=== PATIENT | male | born 1980 | race Caucasian/White ===

== ENCOUNTER 2019-02-16 01:03 | Observation (INO) | payer MEDICARE, OTHER ==
--- NOTE | 2019-02-16 01:40 | ED ---
Chest Pain HPI - General Chief Complaint: Chest Pain Stated Complaint: Chest Pain Time Seen by Provider: 02/16/19 01:39 Source: patient, EMS Mode of arrival: EMS Limitations: no limitations - History of Present Illness MD Complaint: chest pain Onset/Timin -: hour(s) Onset: during rest Pain Location: left chest Pain Radiation: back Severity: severe Quality: sharp Consistency: intermittent Improves With: nothing Worsens With: nothing Anginal Symptoms: dyspnea Treatments Prior to Arrival: none - Related Data Allergies Allergy/AdvReac Type Severity Reaction Status Date / Time No Known Allergies Allergy Verified 02/16/19 01:23 Review of Systems ROS Statement: Those systems with pertinent positive or pertinent negative responses have been documented in the HPI. ROS Other: All systems not noted in ROS Statement are negative. Constitutional: Denies: fever, chills Respiratory: Reports: dyspnea. Denies: cough Cardiovascular: Reports: chest pain. 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 History of Any Multi-Drug Resistant Organisms: None Reported Past Surgical History: Orthopedic Surgery Smoking Status: Current every day smoker Past Alcohol Use History: None Reported Past Drug Use History: Marijuana General Exam Limitations: no limitations General appearance: alert, in no apparent distress Head exam: Present: atraumatic, normocephalic Eye exam: Present: normal appearance. Absent: scleral icterus, conjunctival injection ENT exam: Present: normal oropharynx Neck exam: Present: normal inspection Respiratory exam: Present: normal lung sounds bilaterally. Absent: respiratory distress, wheezes, rales, rhonchi, stridor, chest wall tenderness, accessory muscle use, decreased breath sounds Cardiovascular Exam: Present: regular rate, normal rhythm, normal heart sounds. Absent: systolic murmur, diastolic murmur, rubs, gallop GI/Abdominal exam: Present: soft. Absent: distended, tenderness, guarding, rebound, rigid, mass Extremities exam: Present: normal inspection, normal capillary refill. Absent: pedal edema, calf tenderness Back exam: Present: normal inspection. Absent: CVA tenderness (R), CVA tenderness (L) Neurological exam: Present: alert Skin exam: Present: warm, dry, intact, normal color. Absent: rash Course Vital Signs 02/16/19 01:07 Temperature 98.3 F Pulse Rate 112 H Respiratory 18 Rate Blood Pressure 133/76 O2 Sat by Pulse 98 Oximetry Disposition Clinical Impression: Chest pain Disposition: ADMITTED IP TO THIS HOSP Condition: Fair Instructions (If sedation given, give patient instructions): Chest Pain (ED) Is patient prescribed a controlled substance at d/c from ED?: No Referrals: Alvino Linton MD [Primary Care Provider] - 1-2 days
[2019-02-16 01:50] LABS: Basophils # (A) 0.1 k/uL (0-0.2); Basophils % (A) 1 %; Eosinophils # (A) 0.5 k/uL (0-0.7); Eosinophils % (A) 4 %; HCT 42.7 % (39.0-53.0); HGB 14.8 gm/dL (13.0-17.5); Lymphocytes # (A) 3.4 k/uL (1.0-4.8); Lymphocytes % (A) 32 %; MCH 31.4 pg (25.0-35.0); MCHC 34.6 g/dL (31.0-37.0); MCV 90.9 fL (80.0-100.0); Mean Platelet Volume 6.4; Monocytes # (A) 0.8 k/uL (0-1.0); Monocytes % (A) 7 %; Neutrophils # (A) 5.7 k/uL (1.3-7.7); Neutrophils % (A) 53 %; Platelet Count 423 k/uL (150-450); RDW 12.7 % (11.5-15.5); WBC 10.7 k/uL (3.8-10.6)
[2019-02-16 01:59] LABS: ALT 31 U/L (21-72); AST 20 U/L (17-59); Albumin 4.2 g/dL (3.5-5.0); Alkaline Phosphatase 53 U/L (38-126); Anion Gap 8 mmol/L; Blood Urea Nitrogen 11 mg/dL (9-20); Calcium 9.5 mg/dL (8.4-10.2); Carbon Dioxide 23 mmol/L (22-30); Chloride 107 mmol/L (98-107); Glucose 103 mg/dL (74-99); Potassium 3.7 mmol/L (3.5-5.1); Sodium 138 mmol/L (137-145); Total Bilirubin 0.6 mg/dL (0.2-1.3); Total Protein 6.6 g/dL (6.3-8.2)
[2019-02-16 02:06] LABS: D-Dimer 0.21 mg/L FEU (<0.60); INR 0.9 (<1.2); Partial Thromboplastin Time 26.1 sec (22.0-30.0); Prothrombin Time 10.1 sec (9.0-12.0)
[2019-02-16 02:23] LABS: Creatine Kinase MB 0.8 ng/mL (0.0-2.4); Troponin I <0.012 ng/mL (0.000-0.034)
--- NOTE | 2019-02-16 02:27 | XR ---
EXAM: XR Chest, 2 Views CLINICAL HISTORY: ITS.REASON XR Reason: Chest Pain TECHNIQUE: Frontal and lateral views of the chest. COMPARISON: No relevant prior studies available. FINDINGS: Lungs: No consolidation or mass. Pleural space: No effusion. Heart: No cardiomegaly. Mediastinum: Unremarkable. Bones/joints: No acute findings. IMPRESSION: No acute cardiopulmonary process.
[2019-02-16] MEDS ORDERED: KETOROLAC 30 MG/ML 1 ML VIAL IVP STA (03:29)
[2019-02-16] MEDS ORDERED: HYDROcodone/APAP 5-325MG 1 EACH TAB PO STA (03:29)
[2019-02-16] MEDS ORDERED: NITROGLYCERIN SL TABS 0.4 MG TAB SUBLINGUAL PRN (04:36)
[2019-02-16] MEDS ORDERED: ACETAMINOPHEN TAB 325 MG TAB PO PRN (04:36)
[2019-02-16] MEDS ORDERED: MORPHINE SULFATE 4 MG/ML SYRINGE IV PRN (04:36)
[2019-02-16] MEDS ORDERED: SODIUM CHLORIDE 0.9% 1,000 ML IV SCH (04:45)
[2019-02-16 05:23] VITALS: RESP 18
--- NOTE | 2019-02-16 10:16 | P.HPIM ---
History of Present Illness Chief Complaint: Chest pain This is a 38-year-old gentleman with no significant past medical history comes in with above-mentioned complaint. The patient says that he gave plasma yesterday. After given plasma he notices that he's feeling lightheaded event, he slept till 8:00 at night. He woke up he was starting to notice that he's having chest pressure. He was also lightheaded. He was nauseous as well. He did not notice any diaphoresis, he did not complain of any shortness of breath, he notices the pain radiating to the back and to the left arm, he does not complain of any abdominal pain, no diarrhea constipation, noting only numbness of the extremities, no itch or rash. 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 History of Any Multi-Drug Resistant Organisms: None Reported Past Surgical History: Orthopedic Surgery Additional Past Surgical History / Comment(s): R knee ACL reconstructed, R shoulder reconstructed Past Anesthesia/Blood Transfusion Reactions: No Reported Reaction Past Psychological History: No Psychological Hx Reported Smoking Status: Current every day smoker Past Alcohol Use History: None Reported Additional Past Alcohol Use History / Comment(s): Pt. states that he currently smokes 1 ppd. Past Drug Use History: Marijuana Additional Drug Use History / Comment(s): Pt. states that he smokes marijuana every other day. Medications and Allergies Home Medications Medication Instructions Recorded Confirmed Type Multivitamins, Thera [Multivitamin 1 tab PO DAILY 02/16/19 02/16/19 History (formulary)] Allergies Allergy/AdvReac Type Severity Reaction Status Date / Time No Known Allergies Allergy Verified 02/16/19 08:44 Physical Exam Vitals: Vital Signs Temp Pulse Pulse Resp BP BP Pulse Ox 02/16/19 07:15 98.0 F 61 18 115/71 98 02/16/19 05:34 18 02/16/19 05:22 97.8 F 69 18 129/66 94 L 02/16/19 04:44 78 16 143/73 98 02/16/19 01:07 98.3 F 112 H 18 133/76 98 Intake and Output 02/15/19 02/16/19 02/16/19 22:59 06:59 14:59 Other: Voiding Method Toilet # Voids 1 Weight 87.543 kg On exam, alert and oriented x3. HEENT: Conjunctivae normal. eyes normal. NECK: No JVD. No thyroid enlargement. No LNs CARDIOVASCULAR: S1, S2 positive RESPIRATION: Breath sounds diminished in the bases. No rhonchi or crackles. No bronchial breathing. ABDOMEN: Soft, nontender . No guarding. no masses palpable. No ascites, No hepatosplenomegaly.Bowel sounds heard. LEGS: No edema. no swelling NERVOUS SYSTEM: Cranial N 2-12 grossly normal. Moves all 4 limbs. No focal deficits. No sensory deficit. No signs of cerebellar dysfucntion. Skin: no ulcer no rash Joints: No active swelling. No inflammation. Lymphatic system. No LN neck axilla or groin. Results CBC & Chem 7: 02/16/19 01:42 02/16/19 01:42 Labs: Abnormal Lab Results - Last 24 Hours (Table) 02/16/19 02/16/19 Range/Units 01:42 01:42 WBC 10.7 H (3.8-10.6) k/uL Glucose 103 H (74-99) mg/dL Thrombosis Risk Factor Assmnt - Choose All That Apply Any of the Below Risk Factors Present?: Yes Each Factor Represents 1 point: Obesity (BMI >25) Other Risk Factors: No Thrombosis Risk Factor Assessment Total Risk Factor Score: 1 Thrombosis Risk Factor Assessment Level: Low Risk Assessment and Plan Assessment: - Chest pain need to rule out the cause Plan - We'll admit the patient to observation - Cardiology consulted. Stress test ordered we'll wait for the results - Patient says that he still having some chest pressure. If the stress is negative patient might end up needing a CT of the chest to rule out any pulmonary cause. His d-dimer is negative so the probability of PE is low at this stage. - We'll continue to monitor - DVT and GI prophylaxis - Patient is an observation - Patient is full code Time with Patient: Greater than 30
--- NOTE | 2019-02-16 11:31 | P.CRDCN ---
History of Present Illness History of present illness: This is a pleasant 38-year-old male past medical history significant for daily nicotine dependence as well as marijuana use. He denies history of hypertension, dyslipidemia, diabetes mellitus or coronary artery disease. He has never seen a household cook or undergone any sort of cardiac testing. We've been asked to see him in consultation secondary to chest discomfort. He states 2 days ago he donated plasma. He states he walked to the Center however he doesn't remember how he got home. He states his girlfriend at home that evening at 8:00 and found him sleeping on the couch. When she woke him up he had a pressure sensation in the left precordial region with radiation to the right shoulder intermittently the pain was described as a pressure and stabbing sensation. This was associated with diaphoresis. Symptoms were intermittent and not associated with exertion or activity. He is seen and examined resting comfortably in bed in no acute distress. He denies current symptoms of chest discomfort. EKG reveals sinus mechanism with no acute ST or T wave abnormalities noted. Chest x-ray is negative for an acute cardiopulmonary process. Laboratory data reviewed, cardiac enzymes negative 2, WBC 10.7, hemoglobin 14.8, platelets 423, d-dimer 0.21, sodium 138, potassium 3.7, magnesium 2.0, creatinine 0.96. He takes no daily cardiac medications. At the time of my exam: CONSTITUTIONAL: Denies fever. Denies chills. EYES: Denies blurred vision. Denies vision changes. Denies eye pain. EARS, NOSE, MOUTH & THROAT: Denies headache. Denies sore throat. Denies ear pa in. CARDIOVASCULAR: Denies chest pain. Denies shortness of breath. Denies orthopnea. Denies PND. Denies palpitations. RESPIRATORY: Denies cough. GASTROINTESTINAL: Denies abdominal pain. Denies diarrhea. Denies constipation. Denies nausea. Denies vomiting. MUSCULOSKELETAL: Denies myalgias. INTEGUMENTARY: Denies pruitis. Denies rash. NEUROLOGIC: Denies numbness. Denies tingling. Denies weakness. PSYCHIATRIC: Denies anxiety. Denies depression. ENDOCRINE: Denies fatigue. Denies weight change. Denies polydipsia. Denies polyurina. GENITOURINARY: Denies burning, hematuria or urgency with micturation. HEMATOLOGIC: Denies history of anemia. Denies bleeding. Blood pressure 115/71 heart rate 61 afebrile maintaining oxygen saturation on room air GENERAL: This is a 38-year-old male in no apparent distress at the time of my examination. HEENT: Head is atraumatic, normocephalic. Pupils are equal, round. Sclerae anicteric. Conjunctivae are clear. Mucous membranes of the mouth are moist. Neck is supple. There is no jugular venous distention. No carotid bruit is heard. LUNGS: Clear to auscultation no wheezes, rales or rhonchi. No chest wall tenderness is noted on palpation or with deep breathing. HEART: Regular rate and rhythm without murmurs, rubs or gallops. S1 and S2 heard. ABDOMEN: Soft, nontender. Bowel sounds are heard. No organomegaly noted. EXTREMITIES: No evidence of peripheral edema and no calf tenderness noted. VASCULAR: Radial and dorsalis pedis pulses palpated, no evidence of clubbing. NEUROLOGIC: Patient is awake, alert and oriented x3. ASSESSMENT Chest pain, atypical for angina. An acute coronary event has been ruled out. Recent plasma donation Chronic nicotine and marijuana use PLAN An acute coronary event has been ruled out. Obtain 2-D echocardiogram and Doppler study to assess cardiac structure and function. Perform exercise stress test to assess for stress-induced ischemia. If stress test is normal he is stable from a cardiac perspective. Symptoms most likely related to volume depletion secondary to recent plasma donation. He has been advised not to do any further plasma donations. Tobacco and marijuana cessation recommended. Follow-up with primary care physician upon discharge. Thank you kindly for this consultation. Nurse Practitioner note has been reviewed, I agree with a documented findings and plan of care. Patient was seen and examined. 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 History of Any Multi-Drug Resistant Organisms: None Reported Past Surgical History: Orthopedic Surgery Additional Past Surgical History / Comment(s): R knee ACL reconstructed, R shoulder reconstructed Past Anesthesia/Blood Transfusion Reactions: No Reported Reaction Past Psychological History: No Psychological Hx Reported Smoking Status: Current every day smoker Past Alcohol Use History: None Reported Additional Past Alcohol Use History / Comment(s): Pt. states that he currently smokes 1 ppd. Past Drug Use History: Marijuana Additional Drug Use History / Comment(s): Pt. states that he smokes marijuana every other day. Medications and Allergies Home Medications Medication Instructions Recorded Confirmed Type Multivitamins, Thera [Multivitamin 1 tab PO DAILY 02/16/19 02/16/19 History (formulary)] Allergies Allergy/AdvReac Type Severity Reaction Status Date / Time No Known Allergies Allergy Verified 02/16/19 08:44 Physical Exam Vitals: Vital Signs Temp Pulse Pulse Resp BP BP Pulse Ox 02/16/19 07:15 98.0 F 61 18 115/71 98 02/16/19 05:34 18 02/16/19 05:22 97.8 F 69 18 129/66 94 L 02/16/19 04:44 78 16 143/73 98 02/16/19 01:07 98.3 F 112 H 18 133/76 98 Intake and Output 02/15/19 02/16/19 02/16/19 22:59 06:59 14:59 Other: Voiding Method Toilet # Voids 1 Weight 87.543 kg Results 02/16/19 01:42 02/16/19 01:42 Cardiac Enzymes 02/16/19 02/16/19 02/16/19 Range/Units 01:42 01:42 05:45 AST 20 (17-59) U/L CK-MB (CK-2) 0.8 (0.0-2.4) ng/mL Troponin I <0.012 <0.012 (0.000-0.034) ng/mL Coagulation 02/16/19 Range/Units 01:42 PT 10.1 (9.0-12.0) sec APTT 26.1 (22.0-30.0) sec CBC 02/16/19 Range/Units 01:42 WBC 10.7 H (3.8-10.6) k/uL RBC 4.70 (4.30-5.90) m/uL Hgb 14.8 (13.0-17.5) gm/dL Hct 42.7 (39.0-53.0) % Plt Count 423 (150-450) k/uL Comprehensive Metabolic Panel 02/16/19 Range/Units 01:42 Sodium 138 (137-145) mmol/L Potassium 3.7 (3.5-5.1) mmol/L Chloride 107 (98-107) mmol/L Carbon Dioxide 23 (22-30) mmol/L BUN 11 (9-20) mg/dL Creatinine 0.96 (0.66-1.25) mg/dL Glucose 103 H (74-99) mg/dL Calcium 9.5 (8.4-10.2) mg/dL AST 20 (17-59) U/L ALT 31 (21-72) U/L Alkaline Phosphatase 53 (38-126) U/L Total Protein 6.6 (6.3-8.2) g/dL Albumin 4.2 (3.5-5.0) g/dL Current Medications Generic Name Dose Route Start Last Admin Trade Name Freq PRN Reason Stop Dose Admin Acetaminophen 650 mg 02/16/19 04:36 Tylenol Tab PO Q4HR PRN Pain Aspirin 325 mg 02/17/19 09:00 Aspirin PO DAILY PHYLICIA Sodium Chloride 1,000 mls @ 100 mls/hr 02/16/19 04:45 02/16/19 04:52 Saline 0.9% IV 100 mls/hr .Q10H PHYLICIA Administration Morphine Sulfate 4 mg 02/16/19 04:36 Morphine Sulfate (Inj) IV Q5M PRN Chest Pain Nitroglycerin 0.4 mg 02/16/19 04:36 Nitrostat SUBLINGUAL Q5M PRN Chest Pain Intake and Output 02/15/19 02/16/19 02/16/19 22:59 06:59 14:59 Other: Voiding Method Toilet # Voids 1 Weight 87.543 kg 02/16/19 01:42 02/16/19 01:42
--- NOTE | 2019-02-16 11:55 | P.STRESS ---
- Stress Test Note Stress Test Results/Findings: Exam Performed: stress test Exam Date: 02/16/19 Reason for Exam: CHEST PAIN Height: 5 ft 11 in Weight: 87.543 kg Protocol: ELSA Stage: IV Duration of Exercise: 9:31 Resting Heart Rate: 66 Resting Blood Pressure: 132/58 Maximum Achieved Heart Rate: 154 Maximum Achieved Blood Pressure: 175/84 85% PMHR: 153 100% PMHR: 180 METS: 11.1 Technologist Comment: Stress Test Results/Findings: This is a 38-year-old gentleman with history of 4 smoking was admitted to the hospital with shortness of breath and palpitations. Stress data: Baseline EKG showed sinus rhythm with normal SD interval, QRS duration. Blood pressure at rest is 132/58 with pulse rate of 66. Patient walked on the Elsa protocol for 9 minutes and 31 seconds achieving a maximum rate of 154 with a blood pressure 175/84. EKGs taken during and after exercise did not reveal any significant changes from the baseline. Patient did not experience any chest pain. Final impression: #1. Negative stress test #2 patient did not express any chest pain #3. No arrhythmias are noted #4 patient exercise capacity is good.
[2019-02-16 12:07] VITALS: BP 135/73; PULSE 71; TEMP 98.1
--- NOTE | 2019-02-16 15:02 | P.DS ---
Providers Date of admission: 02/16/19 04:39 Expected date of discharge: 02/16/19 Attending physician: Ziggy Jose Consults: 02/16/19 04:36 Consult Physician Routine Consulting Provider: Sammy Aguillon Consult Reason/Comments: chest pain Do you want consulting provider notified?: Yes Primary care physician: Alvino Linton [facility] Course: - Chest pain cardiac was ruled out Hospital course Very pleasant 38-year-old gentleman with no significant past medical history comes in with above-mentioned complaints. EKG was -3 sets of troponins are negative. He had a stress test which was negative. He was cleared by cardiology to be discharged. He will follow with the primary care doctors in 1 or 2 days. Patient Condition at Discharge: Fair Plan - Discharge Summary Discharge Rx Participant: No New Discharge Prescriptions: Continue Multivitamins, Thera [Multivitamin (formulary)] 1 tab PO DAILY Discharge Medication List Multivitamins, Thera [Multivitamin (formulary)] 1 tab PO DAILY 02/16/19 [History] Follow up Appointment(s)/Referral(s): Alvino Linton MD [Primary Care Provider] - 1-2 days Patient Instructions/Handouts: Chest Pain (ED) Activity/Diet/Wound Care/Special Instructions: If you have any more chest pains, any racing heart, any cough or shortness of breath, any bleeding from anywhere, any lightheadedness or dizziness base, to the ER immediately. Discharge Disposition: HOME SELF-CARE
--- NOTE | 2019-02-16 18:57 | ECHOF ---
Referral Reason:cp MEASUREMENTS -------- HEIGHT: 162.6 cm WEIGHT: 87.5 kg BP: 115/71 IVSd: 1.0 cm (0.6 - 1.1) LVIDd: 4.5 cm (3.9 - 5.3) LVPWd: 1.1 cm (0.6 - 1.1) IVSs: 1.5 cm LVIDs: 3.7 cm LVPWs: 0.9 cm LA Diam: 3.2 cm (2.7 - 3.8) Ao Diam: 2.8 cm (2.0 - 3.7) AV Cusp: 2.5 cm (1.5 - 2.6) MV EXCURSION: 25.076 mm (> 18.000) MV EF SLOPE: 146 mm/s (70 - 150) EPSS: 1.5 cm MV E Jose Alfredo: 0.82 m/s MV DecT: 208 ms MV A Jose Alfredo: 0.56 m/s MV E/A Ratio: 1.45 RAP: 5.00 mmHg RVSP: 16.42 mmHg FINDINGS -------- Sinus rhythm. This was a techncally difficult study with suboptimal views, , Lumason utilized for enhancement of im ages. LV size, wall thickness and systolic function are normal, with an EF greater than 55%. The left cassandra tricular size is normal. The right ventricle is normal in size. The left atrial size is normal. The right atrial size is normal. 5.0mg OF Lumason UTLIZED: 2 OR MORE WALL SEGMENTS NOT VISUALIZED. The aortic valve is trileaflet, and appears structurally normal. No aortic stenosis or regurgitation. Mild mitral annular calcification present. Mild mitral regurgitation is present. Mild tricuspid regurgitation present. There is no evidence of pulmonary hypertension. The right v entricular systolic pressure, as measured by Doppler, is 16.42mmHg. There is no pulmonic regurgitation present. The aortic root size is normal. There is no pericardial effusion. CONCLUSIONS -------- 1. This was a techncally difficult study with suboptimal views, , Lumason utilized for enhancement of images. 2. LV size, wall thickness and systolic function are normal, with an EF greater than 55%. 3. The left ventricular size is normal. 4. The right ventricle is normal in size. 5. The left atrial size is normal. 6. The right atrial size is normal. 7. 5.0mg OF Lumason UTLIZED: 2 OR MORE WALL SEGMENTS NOT VISUALIZED. 8. The aortic valve is trileaflet, and appears structurally normal. No aortic stenosis or regurgitati on. 9. Mild mitral annular calcification present. 10. Mild mitral regurgitation is present. 11. Mild tricuspid regurgitation present. 12. There is no evidence of pulmonary hypertension. 13. The right ventricular systolic pressure, as measured by Doppler, is 16.42mmHg. 14. There is no pulmonic regurgitation present. 15. The aortic root size is normal. 16. There is no pericardial effusion. [employer] CLERK/SPECIALIST: Suzie Velasquez RDCS
[2019-02-17] MEDS ORDERED: ASPIRIN 325 MG TAB PO SCH (09:00)
--- NOTE | 2019-02-19 14:46 | EST ---
Stress Test Results/Findings: Exam Performed: stress test Exam Date: 02/16/19 Reason for Exam: CHEST PAIN Height: 5 ft 11 in Weight: 87.543 kg Protocol: ELSA Stage: IV Duration of Exercise: 9:31 Resting Heart Rate: 66 Resting Blood Pressure: 132/58 Maximum Achieved Heart Rate: 154 Maximum Achieved Blood Pressure: 175/84 85% PMHR: 153 100% PMHR: 180 METS: 11.1 Technologist Comment: Stress Test Results/Findings: This is a 38-year-old gentleman with history of 4 smoking was admitted to the hospital with shortness of breath and palpitations. Stress data: Baseline EKG showed sinus rhythm with normal NM interval, QRS duration. Blood pressure at rest is 132/58 with pulse rate of 66. Patient walked on the Elsa protocol for 9 minutes and 31 seconds achieving a maximum rate of 154 with a blood pressure 175/84. EKGs taken during and after exercise did not reveal any significant changes from the baseline. Patient did not experience any chest pain. Final impression: #1. Negative stress test #2 patient did not express any chest pain #3. No arrhythmias are noted #4 patient exercise capacity is good. MTDD
== END 2019-02-16 15:12 | disposition home or self-care (01) ==
LOC: EC 01:03 → 1SOBS 04:39
PROVIDERS: ADMIT Hospitalist; ATTEND Hospitalist
DX: R07.89 Other chest pain (principal); R06.00 Dyspnea, unspecified; R42 Dizziness and giddiness; R61 Generalized hyperhidrosis; R11.0 Nausea; F12.90 Cannabis use, unspecified, uncomplicated; F17.210 Nicotine dependence, cigarettes, uncomplicated; E66.9 Obesity, unspecified; Z68.26 Body mass index [BMI] 26.0-26.9, adult; Z90.2 Acquired absence of lung [part of]; Z52.008 Unspecified donor, other blood
CPT/HCPCS: 96374; 99285; 36415; 93005; 93017; 85379; 80053; 82553; 83735; 84484; 85025; 85610; 85730; 71046; G0378; C8929; J1885; Q9950; 93306

== ENCOUNTER 2025-02-25 14:41 | Emergency (ER) | payer MEDICARE, OTHER ==
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
--- NOTE | 2025-02-25 15:55 | XR ---
EXAMINATION TYPE: XR chest 2V DATE OF EXAM: 02/25/2025 3:43 PM COMPARISON: Chest radiographs from 02/16/2019 TECHNIQUE: XR chest 2V Frontal and lateral views of the chest. CLINICAL INDICATION:Male, 44 years old with history of SOB; FINDINGS: Lungs/Pleura: There is flattening of the diaphragm with increased lucency of the lungs. No evidence o f pneumothorax, pleural effusion or focal consolidation. Pulmonary vascularity: Unremarkable. Heart/mediastinum: Cardiomediastinal silhouette is unremarkable. Musculoskeletal: No acute osseous pathology. Surgical anchors within the right humeral head. IMPRESSION: 1. No acute cardiopulmonary disease process. 2. COPD changes. [facility], , 02/25/2025 3:53 PM
[2025-02-25 16:09] LABS: Basophils # (A) 0.06 10*3/uL (0.00-0.10); Basophils % (A) 0.5 %; Eosinophils # (A) 0.18 10*3/uL (0.04-0.35); Eosinophils % (A) 1.5 %; HCT 46.5 % (39.6-50.0); HGB 16.4 g/dL (13.0-17.0); Lymphocytes # (A) 1.88 10*3/uL (0.90-5.00); Lymphocytes % (A) 15.4 %; MCH 32.7 pg (27.0-32.0); MCHC 35.3 g/dL (32.0-37.0); MCV 92.8 fL (80.0-97.0); Mean Platelet Volume 8.7 fL (9.5-12.2); Monocytes # (A) 1.53 10*3/uL (0.20-1.00); Monocytes % (A) 12.5 %; Neutrophils # (A) 8.54 10*3/uL (1.80-7.70); Neutrophils % (A) 69.9 %; Platelet Count 409 10*3/uL (140-440); RBC 5.01 10*6/uL (4.40-5.60); RDW 13.2 % (11.5-14.5); WBC 12.22 10*3/uL (4.50-10.00)
[2025-02-25 16:22] LABS: ALT 26 U/L (4-49); AST 32 U/L (17-59); African American GFR (CKD) >90 (>60 ml/min/1.73 sqM); Albumin 4.6 g/dL (3.5-5.0); Alkaline Phosphatase 59 U/L (38-126); Anion Gap 11 mmol/L; Blood Urea Nitrogen 14 mg/dL (9-20); Calcium 10.2 mg/dL (8.4-10.2); Carbon Dioxide 23 mmol/L (22-30); Chloride 104 mmol/L (98-107); Glucose 98 mg/dL (74-99); Non-African American GFR(CKD) >90 (>60 ml/min/1.73 sqM); Potassium 4.1 mmol/L (3.5-5.1); Sodium 138 mmol/L (137-145); Total Bilirubin 0.6 mg/dL (0.2-1.3); Total Protein 7.6 g/dL (6.3-8.2)
[2025-02-25 16:23] LABS: INR 0.9 (<1.2); Partial Thromboplastin Time 25.6 sec (22.0-30.0); Prothrombin Time 10.2 sec (10.0-12.5)
[2025-02-25 16:46] LABS: Influenza A Not Detected (Not Detectd); Influenza B Not Detected (Not Detectd); RSV Not Detected (Not Detectd)
[2025-02-25] MEDS: IPRATROPIUM-ALBUTEROL 3 ML NEB INHALATION STA ×2 (16:52)
[2025-02-25] MEDS: predniSONE 20 MG TAB PO STA (17:36)
[2025-02-25 18:05] VITALS: BP 120/58; PULSE 87; RESP 16; TEMP 97.9
== END 2025-02-25 17:30 | disposition home or self-care (01) ==
LOC: EC 14:41
DX: R06.02 Shortness of breath (principal); F17.200 Nicotine dependence, unspecified, uncomplicated
CPT/HCPCS: 36415; 94640; 93005; 85379; 80053; 84484; 85025; 85610; 85730; 87636; 71046; 99285; J7512